=== PATIENT | male | born 1965 | race Caucasian/White ===

== ENCOUNTER 2016-09-02 17:47 | Emergency (ER) | payer SELFPAY ==
[~2016-09-02] VITALS: Ht 172.7 cm; Wt 99.8 kg
[~2016-09-02 17:47] MED LIST: ALPR0.2583 PO
[2016-09-02 17:56] VITALS: BP_SYST 143
[2016-09-02] MEDS ORDERED: IBUPROFEN 800 MG TABLET PO ONE (19:15)
[2016-09-02] MEDS ORDERED: HYDROcodone/ACETAMIN 10-325 MG TAB PO ONE (19:15)
[2016-09-02 19:40] VITALS: BP_SYST 143
== END 2016-09-02 19:40 | disposition home or self-care (01) ==
LOC: SED 17:47
DX: S83.91XA Sprain of unspecified site of right knee, initial encounter (principal); S16.1XXA Strain of muscle, fascia and tendon at neck level, initial encounter; S39.012A Strain of muscle, fascia and tendon of lower back, initial encounter; S09.90XA Unspecified injury of head, initial encounter; V22.9XXA Unspecified motorcycle rider injured in collision with two- or three-wheeled motor vehicle in traffic accident, initial encounter; Y93.89 Activity, other specified; Y92.89 Other specified places as the place of occurrence of the external cause
CPT/HCPCS: 70450-TC; 72100-TC; 72125-TC; 73564; 99284